=== PATIENT | female | born 1985 | race Caucasian/White ===

== ENCOUNTER → 2021-11-02 14:46 | Outpatient (BNVA) | payer MEDICAID, SELFPAY | PROVIDERS: Visit Provider Nurse Practitioner Family | DX: G43.009 Migraine without aura, not intractable, without status migrainosus (principal); G47.33 Obstructive sleep apnea (adult) (pediatric) | CPT/HCPCS: 99212 ==

== ENCOUNTER 2023-10-05 14:05 | Outpatient (AMB) | payer MEDICAID, SELFPAY ==
--- NOTE | 2023-10-05 14:06 | MHC.OFFVIS ---
Intake Vital Signs 10/05/23 14:07 Height 4 ft 11 in Weight 232 lb BMI 46.9 BP 132/78 Blood Pressure Location Rt brachial Position Sitting Pulse 95 Pulse Source Pulse Oximeter Pulse Oximetry (%) 96 Oxygen Delivery Method Room Air Intake Visit Reasons: Follow up - CONF Intake Note: Patient presents for follow up. I've been getting a lot of bad headaches. Allergies amoxicillin Adverse Reaction (Mild, Verified 10/05/23 14:08) Rash Penicillins Adverse Reaction (Mild, Verified 10/05/23 14:08) Rash Medication List - Last Reconciled 10/05/23 by MANUEL Shankar albuterol sulfate 90 mcg/actuation (ProAir HFA) 2 puffs PO Q6H PRN amitriptyline 75 mg (3 x 25 mg) PO BEDTIME 30 days buspirone 10 mg PO TID cariprazine (Vraylar) 6 mg PO DAILY duloxetine 30 mg PO DAILY hydroxyzine pamoate 100 mg PO BEDTIME loratadine 10 mg PO DAILY magnesium oxide 400 mg PO BEDTIME 30 days mirabegron ER (Myrbetriq) 50 mg PO DAILY multivitamin 1 tab PO DAILY phentermine 37.5 mg PO QAM prazosin 8 mg PO BEDTIME quetiapine 150 mg PO BEDTIME PRN sumatriptan succinate 50 - 100 mg PO at onset of migraine, may repeat in 2 hours, max 2 tabs/day and 4 atbs per week PRN; 2 doses topiramate 150 mg (3 x 50 mg) PO BID 30 days HPI HPI Comments History of Present Illness Details 38-yr-old female presents for f/u visit. Pt reports she was recently dx'd w/ HTN and was started on BP med- ? valsartan. Pt has been noticing increased typical migraine. She thinks maybe they are worse as she had to remove both of her tragus piercings. Having a migraine 1-2 x's per day. Using Tylenol and Sumatriptan prn- works. Baseline headache characteristics: Severe mid-frontal throbbing/pounding a/w photophobia, phonophobia, allodynia, nausea, activity intolerance. Not noticing as much tremor. Has not been using her CPAP machine. Mood is better. Has had some life style changes. [facility] Medical History (Updated 10/05/23 @ 14:40 by MANUEL Shankar) delivery due to maternal disorder Surgical History Hx of tonsillectomy Social History Alcohol intake: never Patient Tobacco Use Status: Never used Tobacco Physical Exam Vital Signs: Last Vital Signs Pulse 95 10/05/23 14:07 BP 132/78 10/05/23 14:07 Pulse Ox 96 10/05/23 14:07 Oxygen Delivery Method Room Air 10/05/23 14:07 BMI result Body Mass Index 46.9 Const General: cooperative and no acute distress Orientation/consciousness: patient oriented x3 Resp Effort & Inspection: normal respiratory effort and able to speak in complete sentences Neuro General: patient oriented x3 Cranial nerves: Yes CN's II-XII intact bilaterally Cognition (Neuro): normal cognition Psych Appearance: grossly normal Mental Status: mental status grossly normal Speech and movement: Normal speech and movement present Affect: normal affect Attitude: cooperative Assessment & Plan Assessment & Plan (1) Chronic migraine without aura: Code(s): G43.709 - Chronic migraine without aura, not intractable, without status migrainosus (2) Obstructive sleep apnea: Code(s): G47.33 - Obstructive sleep apnea (adult) (pediatric) (3) Tremor: Code(s): R25.1 - Tremor, unspecified Plan For migraine prevention tx: Start Emgality 240mg sc x's 1, then 120mg sc q month. Continue Topiramate 150 mg bid and Amitriptyline 75 mg qhs- would not increase further d/t polypharamcy. Continue Magnesium 400 mg qhs. Migraine tx contraindications- BBs d/t asthma. For acute migraine tx: Sumatriptan prn, may take with NSAID or Tylenol. For LAKE: Resume CPAP 8 cmH2O, as pt is having good clinical benefit.? For tremor: Monitor clinically. Medications: New bupropion HCl 300 mg PO QAM galcanezumab-gnlm (Emgality Pen) Loading dose 240mg sc x's, f/b 120mg sc q month 240 mg (2 mL) subcut ONCE 30 days 2 mL 0RF norethindrone (contraceptive) (Karissa) 0.35 mg PO DAILY Coding Level of Care Code Est Pt Level 4 (65227) Diagnoses Chronic migraine without aura G43.709 Obstructive sleep apnea G47.33 Tremor R25.1
[2023-10-05 14:07] VITALS: BP 132/78; PULSE 95; O2SAT 96; BMI 46.9
== END 2023-10-05 14:47 | disposition home or self-care (01) ==
PROVIDERS: Visit Provider Nurse Practitioner Family
DX: G43.709 Chronic migraine without aura, not intractable, without status migrainosus (principal); G47.33 Obstructive sleep apnea (adult) (pediatric); R25.1 Tremor, unspecified
CPT/HCPCS: 99214

== ENCOUNTER → 2023-10-05 14:05 | Outpatient (BNVA) | payer MEDICAID, SELFPAY | PROVIDERS: Visit Provider Nurse Practitioner Family | DX: G43.709 Chronic migraine without aura, not intractable, without status migrainosus (principal); G47.33 Obstructive sleep apnea (adult) (pediatric); R25.1 Tremor, unspecified | CPT/HCPCS: 99212 ==

== ENCOUNTER → 2023-12-07 14:51 | Outpatient (BNVA) | payer MEDICAID, SELFPAY | PROVIDERS: Visit Provider Nurse Practitioner Family ==

== ENCOUNTER 2024-07-26 13:44 | Outpatient (AMB) | payer MEDICAID, SELFPAY ==
[2024-07-26 14:25] VITALS: BP 116/82; PULSE 94; O2SAT 97; BMI 47.5
--- NOTE | 2024-07-26 14:25 | A.OFFVIS_ITS ---
Vital Signs 07/26/24 14:25 Height 4 ft 11 in Weight 235 lb BMI 47.5 BP 116/82 Blood Pressure Location Lt brachial Position Sitting Pulse 94 Pulse Source Pulse Oximeter Pulse Oximetry (%) 97 Oxygen Delivery Method Room Air Intake Visit Reasons: 3 month F/U Search Lead Required: No Accompanied by: Self / Same As Patient Allergies amoxicillin Adverse Reaction (Mild, Verified 07/26/24 14:29) Rash Penicillins Adverse Reaction (Mild, Verified 07/26/24 14:29) Rash Do you need a note to return to daycare/school/sports/work: No HPI Comments Details: 38-yr-old female presents for f/u visit for migraine and LAKE Pt has been noticing increased typical migraine, but realized she has not taken her Emgality since May as she forgot to reorder it. When on Emgality, migraines attacks are less often and less severe. Having a migraine 1-2 x's per day. Triggers include stress. Using Tylenol and Sumatriptan prn- works. Baseline headache characteristics: Severe mid-frontal throbbing/pounding a/w photophobia, phonophobia, allodynia, nausea, activity intolerance. Not noticing as much tremor. She started using her CPAP machine again, as she was told she was snoring loudly, gasping, snorting, and having excessive daytime sleepiness. Since resuming CPAP, she feels that she sleeps better with her CPAP and has more energy overall. Mood continues to be better. Has had some life style changes. Note the compliance report is listed under her previous name, since her divorce she has resumed her maiden name Chase. [facility] Compliance Report Usage 06/26/2024 - 07/25/2024 Usage days 20/30 days (67%) >= 4 hours 19 days (63%) < 4 hours 1 days (3%) Usage hours 151 hours 0 minutes Average usage (total days) 5 hours 2 minutes Average usage (days used) 7 hours 33 minutes Median usage (days used) 7 hours 53 minutes Total used hours (value since last reset - 07/25/2024) 5,046 hours AirSense 10 AutoSet Serial number [id number] Mode CPAP Set pressure 8 cmH2O EPR Fulltime EPR level 3 Therapy Leaks - L/min Median: 0.7 95th percentile: 5.3 Maximum: 40.7 Events per hour AI: 0.4 HI: 0.5 AHI: 0.9 PFSH Medical History delivery due to maternal disorder Surgical History Hx of tonsillectomy Social History Alcohol intake: never Patient Tobacco Use Status: Never used Tobacco Physical Exam Vital Signs: Last Vital Signs Pulse 94 07/26/24 14:25 BP 116/82 07/26/24 14:25 Pulse Ox 97 07/26/24 14:25 Oxygen Delivery Method Room Air 07/26/24 14:25 BMI result Body Mass Index 47.5 Const General: cooperative and no acute distress Orientation/consciousness: patient oriented x3 Resp Effort & Inspection: normal respiratory effort and able to speak in complete sentences Neuro General: patient oriented x3 Cranial nerves: Yes CN's II-XII intact bilaterally Cognition (Neuro): normal cognition Psych Appearance: grossly normal Mental Status: mental status grossly normal Speech and movement: Normal speech and movement present Affect: normal affect Attitude: cooperative Assessment & Plan Assessment & Plan (1) Chronic migraine without aura: Code(s): G43.709 - Chronic migraine without aura, not intractable, without status migrainosus Category: Medical (2) Obstructive sleep apnea: Code(s): G47.33 - Obstructive sleep apnea (adult) (pediatric) Category: Medical (3) Tremor: Code(s): R25.1 - Tremor, unspecified Category: Medical Plan For migraine prevention tx: Resume Emgality, as it has been greater than 2 months since her last dose, she is advised to start Emgality with a loading dose of 240mg sc x's 1, and then resume maintenance dose of 120mg sc q month. Continue Topiramate 150 mg bid and Amitriptyline 75 mg qhs- would not increase further d/t polypharamcy. Continue Magnesium 400 mg qhs. Migraine tx contraindications- BBs d/t asthma. For acute migraine tx: Sumatriptan prn, may take with NSAID or Tylenol. For LAKE: Continue CPAP 8 cmH2O w/ EPR 3 with goal of using CPAP greater than 4 hours nightly, as pt is having good clinical benefit from use. For tremor: Monitor clinically. Follow-up in 6-9 months or sooner as needed. Coding Level of Care Code Est Pt Level 4 (10586) Diagnoses Chronic migraine without aura G43.709 Obstructive sleep apnea G47.33 Tremor R25.1
== END 2024-07-26 15:04 | disposition home or self-care (01) ==
PROVIDERS: Visit Provider Nurse Practitioner Family
DX: G43.709 Chronic migraine without aura, not intractable, without status migrainosus (principal); G47.33 Obstructive sleep apnea (adult) (pediatric); R25.1 Tremor, unspecified
CPT/HCPCS: 99214

== ENCOUNTER → 2024-07-26 13:44 | Outpatient (BNVA) | payer MEDICAID, SELFPAY | PROVIDERS: Visit Provider Nurse Practitioner Family | DX: G43.709 Chronic migraine without aura, not intractable, without status migrainosus (principal); G47.33 Obstructive sleep apnea (adult) (pediatric); R25.1 Tremor, unspecified | CPT/HCPCS: 99212 ==